=== PATIENT | female | born 1975 | race Two or more races ===

== ENCOUNTER → 2025-04-25 | Emergency (ER) | payer OTHER ==
[~2025-04-25] VITALS: Ht 177.8 cm; Wt 63.5 kg
[2025-04-25 19:36] VITALS: BP 125/82; O2SAT 99
== END | disposition left against medical advice (07) ==
LOC: ER 17:46
DX: Z53.21 Procedure and treatment not carried out due to patient leaving prior to being seen by health care provider (principal)